=== PATIENT | male | born 1980 | race Caucasian/White ===

== ENCOUNTER → 2018-01-14 | Outpatient (REF) ==
[~2018-01-14] MED LIST: DOC100 PO; LOR5 PO; OXYC-763 PO; PER PO
== END ==
LOC: AUD 10:00
PROVIDERS: ATTEND Internal Medicine
DX: Z01.10 Encounter for examination of ears and hearing without abnormal findings (principal)
CPT/HCPCS: 92552

== ENCOUNTER → 2019-02-03 | Outpatient (REF) | LOC: AUD 08:50 | PROVIDERS: ATTEND Internal Medicine | DX: Z01.12 Encounter for hearing conservation and treatment (principal) | CPT/HCPCS: 92552 ==